=== PATIENT | female | born 1980 | race African-American/Black ===

== ENCOUNTER → 2016-11-05 | Outpatient (CLI) | payer OTHER ==
[~2016-11-05] MED LIST: IBUPROFEN800 MG PO
== END | disposition home or self-care (01) ==
LOC: CLAB 15:40
DX: Z01.812 Encounter for preprocedural laboratory examination (principal); E66.01 Morbid (severe) obesity due to excess calories
CPT/HCPCS: 36415; 84443; 86677; G0463

== ENCOUNTER → 2016-12-13 | Outpatient (CLI) | payer OTHER ==
--- NOTE | ~2016-12-13 | EKG ---
PATIENT: KATHI, KITA UNIT #: [id number] Ventricular Rate: 36 BPM Atrial Rate: 36 BPM P-R Interval: 198 ms QRS Duration: 88 ms Q-T Interval: 504 ms QTC Calculation(Bezet): 389 ms P [place]: 61 degrees Calculated R [place]: 6 degrees Calculated T [place]: 28 degrees Diagnosis Line: Marked sinus bradycardia Diagnosis Line: Abnormal ECG Diagnosis Line: No previous ECGs available Diagnosis Line: Confirmed by AZUL KNOWLES MD ([id number]) on 12/13/2016 Diagnosis Line: 8:10:40 PM INTERPRETING MD: ELENI GUTHRIE
--- NOTE | ~2016-12-13 | CR97 ---
[facility] A Service of [facility] RADIOLOGY TEXT RESULTS PATIENT: KITA ARMENTA LOCATION: [facility] : 80 UNIT #: [id number] AGE: [address]: Keny Don MD SEX: F ORDER DR: [id number] [facility] [address] [place], [place] [address] [id number] O MR#: [id number] Acc #: [id number] NAME: KITA ARMENTA : 1980 SEX: F STUDY DATE/TIME: 12/13/2016 8:44 UNIT: [facility] ROOM: STUDY DESCRIPTION: CR Esophagram Attending Physician: Keny Don M.D. Referring Physician: Keny Don M.D. Ordering Physician: Keny Don M.D. Primary Care Physician: Rosalind Moody M.D. MEDICAL IMAGING REPORT This report is preliminary unless electronic signature is present EXAM Esophagram INDICATIONS Preoperative evaluation prior to lap-band placement. PROCEDURE Patient swallowed barium under fluoroscopic visualization. Spot images were obtained. Total 12 images were obtained. Total fluoro time 0.5 minutes. FINDINGS No evidence for esophageal mass or stricture. No evidence for hiatal hernia. Contrast easily passes into the stomach. IMPRESSION Negative esophagram Dictated by... Elpidio Lambert M.D. THIS IS AN ELECTRONICALLY VERIFIED REPORT Elpidio Lambert M.D. at 12/17/2016 7:14 AM TAISHA/eduarda TD: 12/13/2016 12:13 JOB #: [id number] MEDICAL IMAGING REPORT Page 1 of 1 COPY
--- NOTE | ~2016-12-13 | CR63 ---
[facility] A Service of [facility] RADIOLOGY TEXT RESULTS PATIENT: KITA ARMENTA LOCATION: [facility] : 80 UNIT #: [id number] AGE: [address]: Keny Don MD SEX: F ORDER DR: [id number] [facility] [address] [place], [place] [address] [id number] O MR#: [id number] Acc #: [id number] NAME: KITA ARMENTA : 1980 SEX: F STUDY DATE/TIME: 12/13/2016 8:27 UNIT: [facility] ROOM: STUDY DESCRIPTION: CR Chest 2 View Attending Physician: Keny Don M.D. Referring Physician: Keny Don M.D. Ordering Physician: Keny Don M.D. Primary Care Physician: Rosalind Moody M.D. MEDICAL IMAGING REPORT This report is preliminary unless electronic signature is present EXAM Chest PA and lateral, 12/13/2016 HISTORY Shortness of breath on exertion today. Morbid obesity, preop laparoscopic gastric banding. Benign essential hypertension. FINDINGS There is mild cardiac enlargement. The lungs are clear. There are no pleural effusions. No prior chest radiograph for comparison. IMPRESSION Mild cardiomegaly. No active pulmonary disease. Dictated by... Elroy So M.D. THIS IS AN ELECTRONICALLY VERIFIED REPORT Elroy So M.D. at 12/13/2016 4:35 PM CAL/laurie TD: 12/13/2016 09:16 JOB #: [id number] MEDICAL IMAGING REPORT Page 1 of 1 COPY
[2016-12-13 09:21] LABS: HEMATOCRIT 35.2 % (35.0-45.0); HEMOGLOBIN 11.7 gm/dL (12.0-16.0); MEAN CELL VOLUME 82.9 FL (83-96); MEAN CORPUSCULAR HEMOGLOBIN 27.6 PG (28-34); MEAN CORPUSCULAR HGB CONC 33.3 g/dL (30-36); MEAN PLATELET VOLUME 8.1 FL (6.5-11.5); RED BLOOD COUNT 4.24 X10e (3.90-5.30); RED CELL DISTRIBUTION WIDTH 15.1 % (11.0-15.5); WHITE BLOOD COUNT 6.8 X10e3 (4.0-10.5)
[2016-12-13 10:38] LABS: ALBUMIN SERUM 4.1 g/dL (3.5-5.0); BILIRUBIN,TOTAL 0.4 mg/dL (0.2-2.0); CALCIUM SERUM 9.6 mg/dL (8.4-10.2); POTASSIUM 4.2 mmol/L (3.5-5.1); PROTEIN TOTAL SERUM 6.8 g/dL (6.0-8.3)
== END | disposition home or self-care (01) ==
LOC: CRAD 08:13 → CAMB 10:00
PROVIDERS: Surgery
DX: Z01.818 Encounter for other preprocedural examination (principal); E66.01 Morbid (severe) obesity due to excess calories; R94.31 Abnormal electrocardiogram [ECG] [EKG]; I51.7 Cardiomegaly
CPT/HCPCS: 36415; 71020; 74220; 80053; 80061; 84443; 85027; 93005

== ENCOUNTER → 2016-12-25 | Day surgery (SDC) | payer OTHER ==
--- NOTE | ~2016-12-25 | OR ---
Unit #: [id number] #: [id number] Patient: KITA ARMENTA [id number] [facility]. [place], [place] [address] [id number] O MR#: [id number] NAME: KITA ARMENTA ROOM: Date of Procedure: 12/25/2016 Admission Date: 12/25/2016 Surgeon: Keny Don M.D. : 1980 Attending Physician: Keny Don M.D. Primary Care Physician: Rosalind Moody M.D. OPERATIVE REPORT PREOPERATIVE DIAGNOSIS Morbid obesity, body mass index of 39. POSTOPERATIVE DIAGNOSES 1. Morbid obesity, body mass index of 39. 2. Paraesophageal hiatal hernia. PROCEDURES PERFORMED 1. Laparoscopic adjustable gastric band. 2. Laparoscopic paraesophageal hiatal hernia repair. ASSISTANT Chuck Carpenter M.D. ANESTHESIA General endotracheal anesthesia. ESTIMATED BLOOD LOSS Minimal. IV FLUIDS 800 crystalloid. COMPLICATIONS None. INDICATIONS FOR PROCEDURE The patient is a 36-year-old with chronic morbid obesity. DESCRIPTION OF PROCEDURE The patient was taken to the operating room and placed in supine position. General anesthesia was induced. The abdomen was prepped and draped. A 3-cm incision was then made left of the midline. A 10-mm Visiport was then placed intraabdominal under direct vision. The abdomen was insufflated to 15 mmHg with CO2. The patient was then placed in a steep reversed Trendelenburg. General inspection of the abdomen revealed what appeared to be a paraesophageal hernia. This was identified with a defect at the diaphragm using anterior palpation with the instrument. We then made a small incision in the subxiphoid region. A Jovita liver retractor was then placed intraabdominal and used to retract the left lobe of the liver upward to further expose the paraesophageal hernia and GE junction. I then placed a 5-mm port in the right upper quadrant, a 10-mm Unit #: [id number] #: [id number] Patient: KITA ARMENTA port in the left upper quadrant, and another 5-mm port in the left lower quadrant. The stomach was retracted medial and downward. Upon retracting the stomach, we took down the paraesophageal ligament, exposing the right and left verenice at the paraesophageal hernia. Any hernia sac was reduced. We then repaired the paraesophageal hernia using interrupted #0 Ethibond sutures in a wjkkpj-wa-hjzcl type fashion. This formed a snug repair to the anterior esophagus. We then retracted the stomach medially and further exposed the angle of His using Bovie electrocautery. The stomach was then retracted laterally. We then took down the hepatogastric ligament with Bovie electrocautery. This exposed the right verenice. Using blunt dissection, I created a retrogastric tunnel from this point to the angle of His. The band was then placed intraabdominal through the 10-mm port site. This was then brought through the retrogastric tunnel in a pars flaccida technique. The band was then closed anteriorly to form a 20-mL to 25-mL anterior gastric pouch. The fundus was then secured to the anterior pouch to prevent movement around the stomach using two interrupted #0 Ethibond sutures. A third suture was then used as a gathering stitch from the lesser curve to the anterior stomach, gathering and imbricating the remaining fundus of the stomach. The tubing was then brought out through the midline 10-mm port site. All ports and the Jovita liver retractor were removed under direct vision with no evidence of abdominal hemorrhage. A polypropylene mesh was then secured to the posterior face of the laparoscopic band port. This was secured using #0 Ethibond suture. This was then cut to shape. The port was then connected to the tubing and placed into a subcutaneous pocket just anterior to the rectus sheath. Its position was then confirmed. All tubing was then placed intraabdominal. The wounds were then closed with interrupted 4-0 Vicryl. The patient tolerated the procedure well and was sent to the recovery room in good condition. Dictated by... Checo Kang/ludwig TD: 12/25/2016 23:21 JOB #: [id number] OPERATIVE REPORT Page 1 of 1 X Keny Don MD PROCEDURE OPERATIVE NOTE
--- NOTE | ~2016-12-25 | CR7 ---
[facility] A Service of [facility] RADIOLOGY TEXT RESULTS PATIENT: KITA ARMENTA LOCATION: [facility] : 80 UNIT #: [id number] AGE: [address]: Keny Don MD SEX: F ORDER DR: [id number] [facility] [address] [place], [place] [address] [id number] O MR#: [id number] Acc #: [id number] NAME: KITA ARMENTA : 1980 SEX: F STUDY DATE/TIME: 12/25/2016 9:21 UNIT: [facility] ROOM: STUDY DESCRIPTION: CR Abdomen Single AP View Attending Physician: Keny Don M.D. Ordering Physician: Keny Don M.D. Primary Care Physician: Rosalind Moody M.D. MEDICAL IMAGING REPORT This report is preliminary unless electronic signature is present EXAM Supine abdomen 12/25/2016 HISTORY Lap-Band placement. FINDINGS Left upper quadrant Lap-Band makes about an 80 degree angle with the spine. Normal bowel gas pattern. Dictated by... Judah Sultana M.D. THIS IS AN ELECTRONICALLY VERIFIED REPORT Judah Sultana M.D. at 12/26/2016 1:47 PM J LUIS/kizzy TD: 12/25/2016 12:01 JOB #: [id number] MEDICAL IMAGING REPORT Page 1 of 1 COPY
== END | disposition home or self-care (01) ==
LOC: CSUR 06:29
DX: E66.01 Morbid (severe) obesity due to excess calories (principal); K44.9 Diaphragmatic hernia without obstruction or gangrene; F17.210 Nicotine dependence, cigarettes, uncomplicated; Z68.39 Body mass index [BMI] 39.0-39.9, adult; Z72.4 Inappropriate diet and eating habits; Z79.1 Long term (current) use of non-steroidal anti-inflammatories (NSAID)
CPT/HCPCS: 74000; C1781; J0330; J0690; J1650; J1885; J2250; J2405; J2710; J3010